=== PATIENT | female | born 1975 | race Caucasian/White ===

== ENCOUNTER 2023-03-14 06:57 | Emergency (ER) | payer OTHER ==
[~2023-03-14] VITALS: Ht 170.2 cm; Wt 74.8 kg
[2023-03-14 07:50] LABS: BASOPHILS ABSOLUTE AUTO 0.04 K/mm3 (0.00-0.23); BASOPHILS PERCENT AUTO 1 % (0-2); EOSINOPHILS ABSOLUTE AUTO 0.15 K/mm3 (0.00-0.68); EOSINOPHILS PERCENT AUTO 2 % (0-6); Hematocrit 41.9 % (33.0-51.0); Hemoglobin 14.3 g/dL (11.5-16.0); IMMATURE GRAN ABSOLUTE AUTO 0.02 K/mm3 (0.00-0.10); IMMATURE GRAN PERCENT AUTO 0 % (0-1); LYMPHOCYTES ABSOLUTE AUTO 3.23 K/mm3 (0.84-5.20); LYMPHOCYTES PERCENT AUTO 41 % (21-46); MONOCYTES PERCENT AUTO 5 % (4-13); Mean Corpuscular HGB 28.1 pg (26.0-34.0); Mean Corpuscular HGB Conc 34.1 g/dL (31.5-36.5); Mean Corpuscular Volume 82 fL (80-100); Mean Platelet Volume 11.4 fL (9.1-12.4); NEUTROPHILS ABSOLUTE AUTO 4.08 K/mm3 (1.96-9.15); NEUTROPHILS PERCENT AUTO 51 % (41-73); Platelet Count 245 K/mm3 (150-400); RDW Coefficient Variation 12.5 % (11.7-14.2); RDW Standard Deviation 37.3 fL (35.1-46.3); Red Blood Cell Count 5.09 M/mm3 (3.80-5.20); White Blood Cell Count 7.92 K/mm3 (4.00-11.30)
[2023-03-14 08:14] LABS: Albumin, Blood 4.2 g/dL (3.4-5.0); Albumin/Globulin Ratio 1.4 (0.8-1.8); Bun/Creatinine Ratio 10.8 (12.0-20.0); Creatinine, Blood 0.93 mg/dL (0.40-1.00); Globulin, Blood 3.1 g/dL (2.2-4.0); Potassium, Blood 3.2 mmol/L (3.5-5.5); Total Protein, Blood 7.3 g/dL (6.4-8.2)
[2023-03-14 08:30] LABS: Source, Urine Clean Catch
[2023-03-14 08:34] LABS: Appearance, Urine Clear (Clear); Bilirubin, Urine Neg (Neg); Blood, Urine 2+ (Neg); Color, Urine Yellow (P-Yellow); Glucose Qualitative, Urine Neg (Neg); Ketones, Urine 3+ (Neg); Leukocyte Esterase, Urine Neg (Neg); Nitrite, Urine Neg (Neg); Protein, Urine Neg (Neg); Urobilinogen, Urine NORM (Normal)
[2023-03-14 08:45] LABS: Amorphous Light (0-Heavy); Bacteria Rare /hpf; Mucus Light (0-Heavy); Squamous Epithelial Cells Rare /hpf (Few); White Blood Cells, Urine 0-2 /hpf (0-5)
[2023-03-14 09:37] VITALS: BP 134/74
[2023-03-14] MEDS ORDERED: Percocet 5-3251 EACH PO (09:45)
[2023-03-14] MEDS ORDERED: TAMS.4ER PO (09:45)
[2023-03-14] MEDS ORDERED: ONDA4ODT MM (09:45)
== END 2023-03-14 10:17 | disposition home or self-care (01) ==
LOC: ER 06:57
PROVIDERS: Emergency Medicine
DX: N13.2 Hydronephrosis with renal and ureteral calculous obstruction (principal); Z87.442 Personal history of urinary calculi
CPT/HCPCS: 74176; 80053; 81001; 85025; 96361; 96374; 96375; 99284-25; J1885; J2270; J2405; J3010; J7030

== ENCOUNTER 2024-02-06 04:34 | Emergency (ER) | payer OTHER ==
[~2024-02-06] VITALS: Ht 170.2 cm; Wt 72.6 kg
[~2024-02-06 04:34] MED LIST: ONDA4ODT MM; Percocet 5-3251 EACH PO; TAMS.4ER PO
[2024-02-06] MEDS ORDERED: Ketorolac Tromethamine 30mg Vial IV ONE (05:05)
[2024-02-06] MEDS ORDERED: Ondansetron HCl 2 MG / ML 2ML Vial IV ONE ×2 (05:05→06:25)
[2024-02-06 05:10] LABS: BASOPHILS ABSOLUTE AUTO 0.04 K/mm3 (0.00-0.23); BASOPHILS PERCENT AUTO 0 % (0-2); EOSINOPHILS PERCENT AUTO 1 % (0-6); Hematocrit 39.3 % (33.0-51.0); Hemoglobin 12.7 g/dL (11.5-16.0); IMMATURE GRAN ABSOLUTE AUTO 0.06 K/mm3 (0.00-0.10); IMMATURE GRAN PERCENT AUTO 0 % (0-1); LYMPHOCYTES ABSOLUTE AUTO 2.04 K/mm3 (0.84-5.20); LYMPHOCYTES PERCENT AUTO 14 % (21-46); MONOCYTES ABSOLUTE AUTO 0.77 K/mm3 (0.16-1.47); MONOCYTES PERCENT AUTO 5 % (4-13); Mean Corpuscular HGB 27.7 pg (26.0-34.0); Mean Corpuscular HGB Conc 32.3 g/dL (31.5-36.5); Mean Corpuscular Volume 86 fL (80-100); Mean Platelet Volume 11.5 fL (9.1-12.4); NEUTROPHILS PERCENT AUTO 78 % (41-73); Platelet Count 241 K/mm3 (150-400); RDW Coefficient Variation 12.6 % (11.7-14.2); RDW Standard Deviation 39.3 fL (35.1-46.3); Red Blood Cell Count 4.59 M/mm3 (3.80-5.20); White Blood Cell Count 14.41 K/mm3 (4.00-11.30)
[2024-02-06] MEDS ORDERED: NS 1,000 ML IV SCH (05:10)
[2024-02-06 05:37] LABS: Albumin, Blood 3.5 g/dL (3.4-5.0); Albumin/Globulin Ratio 1.1 (0.8-1.8); Bilirubin, Total 1.2 mg/dL (0.1-1.0); Bun/Creatinine Ratio 14.5 (12.0-20.0); Calcium, Blood 8.7 mg/dL (8.5-10.1); Creatinine, Blood 0.9 mg/dL (0.40-1.00); Globulin, Blood 3.2 g/dL (2.2-4.0); Potassium, Blood 3.9 mmol/L (3.5-5.5); Total Protein, Blood 6.7 g/dL (6.4-8.2)
[2024-02-06] MEDS ORDERED: HYDROmorphone HCl/Pf 1MG SYR IV ONE ×2 (05:55→08:10)
[2024-02-06 06:01] LABS: Source, Urine Clean Catch
[2024-02-06 06:03] LABS: Bilirubin, Urine Neg (Neg); Blood, Urine 2+ (Neg); Glucose Qualitative, Urine Neg (Neg); Ketones, Urine Neg (Neg); Leukocyte Esterase, Urine Neg (Neg); Nitrite, Urine Neg (Neg); Protein, Urine Neg (Neg); Urobilinogen, Urine NORM (Normal)
[2024-02-06 06:08] LABS: Appearance, Urine Clear (Clear); Color, Urine Yellow (P-Yellow)
[2024-02-06 06:09] LABS: Amorphous Light (0-Heavy); Bacteria Rare /hpf; Red Blood Cells, Urine Not Seen /hpf (0-2); Squamous Epithelial Cells Rare /hpf (Few); White Blood Cells, Urine 0-2 /hpf (0-5)
[2024-02-06] MEDS ORDERED: Tamsulosin HCl 0.4 MG Cap PO ONE (06:25)
[2024-02-06] MEDS ORDERED: HYDR1TAB94 PO (06:57)
[2024-02-06] MEDS ORDERED: ONDA4ODT MM (06:57)
[2024-02-06] MEDS ORDERED: TAMS.4ER PO (06:57)
[2024-02-06] MEDS ORDERED: PROM12.5S PR (07:21)
[2024-02-06] MEDS ORDERED: Metoclopramide HCl 5MG / ML 2ML Vial IV ONE (07:25)
[2024-02-06] MEDS ORDERED: Prochlorperazine Edisylate 10 mg Vial IV ONE (08:10)
[2024-02-06 11:44] VITALS: BP 108/66
== END 2024-02-06 11:44 | disposition home or self-care (01) ==
LOC: ER 04:34
PROVIDERS: Emergency Medicine
DX: N13.2 Hydronephrosis with renal and ureteral calculous obstruction (principal); Z88.5 Allergy status to narcotic agent
CPT/HCPCS: 74177; 80053; 81001; 83690; 85025; 96374-59; 96375; 96376; 99284-25; A9270; J0780; J1170; J1885; J2405; J2765; J7030; Q9967

== ENCOUNTER → 2024-06-19 | Outpatient (CLI) | payer OTHER ==
[~2024-06-19] MED LIST changes: +HYDR1TAB94 PO; +PROM12.5S PR
== END ==
LOC: LAB SHORT 15:00 → LAB 15:00
DX: R10.9 Unspecified abdominal pain (principal)
CPT/HCPCS: 87086

== ENCOUNTER → 2024-07-08 | Outpatient (CLI) | payer OTHER ==
[2024-07-14 12:55] LABS: CALCIUM, URINE - PER 24H 204 mg/d (100-250); CALCIUM, URINE - PER VOLUME 20.4 mg/dL; CHLORIDE, URINE - PER 24H 101 mmol/d (140-250); CHLORIDE, URINE - PER VOLUME 101 mmol/L; CITRIC ACID, URINE - PER 24H 529 mg/d (320-1240); CITRIC ACID,URINE - PER VOLUME 529 mg/L; CREATININE, URINE - PER 24H 1270 mg/d (700-1600); CREATININE, URINE - PER VOLUME 127 mg/dL; HOURS COLLECTED 24 hr; MAGNESIUM, URINE - PER VOLUME 8.9 mg/dL; MAGNESIUM, URINE PER 24H 89 mg/d (12-199); OXALATE, URINE - PER 24H 20 mg/d (13-40); OXALATE, URINE - PER VOLUME 20 mg/L; PH, URINE 6.42 (5.00-7.50); PHOSPHORUS, URINE - PER 24H 700 mg/d (400-1300); PHOSPHORUS, URINE - PER VOLUME 70 mg/dL; POTASSIUM, URINE - PER 24H 41 mmol/d (25-125); POTASSIUM, URINE - PER VOLUME 41 mmol/L; SODIUM, URINE - PER 24H 115 mmol/d (51-286); SODIUM, URINE - PER VOLUME 115 mmol/L; SULFATE, URINE - PER 24H 16 mmol/d (6-30); SULFATE, URINE - PER VOLUME 16 mmol/L; TOTAL VOLUME 1000 mL; URIC ACID, URINE - PER 24H 446 mg/d (250-750); URIC ACID, URINE - PER VOLUME 44.6 mg/dL; URINE SUPERSATURATION INTERP Abnormal; URINE SUPERSATURATION, CAHPO4 5.54; URINE SUPERSATURATION, CAOX 7.14; URINE SUPERSATURATION, UA CALC 0.27
== END | disposition home or self-care (01) ==
LOC: LAB 12:13 → LAB SHORT 12:13
PROVIDERS: Urology
DX: N20.0 Calculus of kidney (principal)
CPT/HCPCS: 81003; 81050; 82131; 82140; 82340; 82436; 82507; 82570; 83735; 83935; 83945; 84105; 84133; 84300; 84392; 84560

== ENCOUNTER → 2024-08-16 | Outpatient (CLI) | payer OTHER ==
[2024-08-16 14:45] LABS: Source, Urine Clean Catch
[2024-08-16 15:39] LABS: Appearance, Urine Clear (Clear); Bilirubin, Urine Neg (Neg); Blood, Urine Neg (Neg); Color, Urine Yellow (P-Yellow); Glucose Qualitative, Urine Neg (Neg); Ketones, Urine Neg (Neg); Leukocyte Esterase, Urine Neg (Neg); Nitrite, Urine Neg (Neg); Protein, Urine Neg (Neg); Specific Gravity, Urine 1.015 (1.003-1.022); Urobilinogen, Urine NORM (Normal)
== END ==
LOC: LAB SHORT 14:43 → LAB 14:43
PROVIDERS: Student in an Organized Health Care Education/Training Program
DX: R35.0 Frequency of micturition (principal)
CPT/HCPCS: 81003